=== PATIENT | male | born 1990 | race Two or more races ===

== ENCOUNTER 2018-05-19 03:21 | Emergency (ER) | payer SELFPAY ==
[2018-05-19 03:25] VITALS: BP 159/84; PULSE 91; TEMP 98.4; BMI 43.5
--- NOTE | 2018-05-19 03:37 | PDOC ---
History of Present Illness - General Chief Complaint: Chest Pain Stated Complaint: CHEST PAIN - History of Present Illness Initial Comments: 05/19/18 03:36 27 yo male with PMH asthma as a child, presents with complaint of Epigastric abdominal pain 01/01 since 1:15. He states the pain is associated with nausea and nonbloody diarrhea which he attributes to an avocado he ate earlier during the evening which tasted like it may have been bad. He endorses some chills associated. Past History - Travel Traveled outside of the country in the last 30 days: No - Past Medical History Allergies/Adverse Reactions: Allergies Allergy/AdvReac Type Severity Reaction Status Date / Time No Known Allergies Allergy Verified 05/19/18 03:24 Home Medications: Ambulatory Orders NK [No Known Home Medication] 05/19/18 Asthma: Yes COPD: No - Suicide/Smoking/Psychosocial Hx Smoking History: Never smoked Review of Systems - Review of Systems Constitutional: Yes: Chills ABD/GI: Yes: Diarrhea, Nausea, Other (Epigastric pain) *Physical Exam - Vital Signs Last Vital Signs Temp Pulse Resp BP Pulse Ox 98.4 F 91 H 18 159/84 96 05/19/18 03:22 05/19/18 03:22 05/19/18 03:22 05/19/18 03:22 05/19/18 03:22 - Physical Exam Comments: 05/19/18 03:37 GEN: A&O, mild acute distress HEENT: Dry mucus membranes, no pharyngeal erythema or exudate NECK: Supple, no lymphadenopathy HEART: RRR, no murmurs noted LUNGS: CTA b/l ABDOMEN: Soft, nondistended, epigastric tenderness to palpation EXTREMITIES: No peripheral edema or calf tenderness Moderate Sedation - Procedure Monitoring Vital Signs: Procedure Monitoring Vital Signs Temperature 98.4 F 05/19/18 03:22 Pulse Rate 91 H 05/19/18 03:22 Respiratory Rate 18 05/19/18 03:22 Blood Pressure 159/84 05/19/18 03:22 O2 Sat by Pulse Oximetry (%) 96 05/19/18 03:22 ED Treatment Course - LABORATORY CBC & Chemistry Diagram: 05/19/18 04:38 05/19/18 04:38 Medical Decision Making - Medical Decision Making 05/19/18 03:50 27 yo male with 2 hours epigastric pain, nausea, diarrhea. CBC, CMP, Influenza pending Will bolus 1L NS During lab draw, pt became diaphoretic, saturating 98% on room air but complaining of difficulty breathing EKG performed with normal sinus rhythm, no ST/Twave abnormalities, tachycardic @ 97 bpm Will add cardiac profile 05/19/18 04:41 Labs drawn, 0.22 IV in the Right hand. Labs pending. Will reassess following fluid bolus 05/19/18 05:56 CBC, CMP, lipase wnl. Likely viral gastroenteritis vs food born illness *DC/Admit/Observation/Transfer Diagnosis at time of Disposition: Gastroenteritis, Food poisoning - Discharge Dispostion Disposition: HOME Condition at time of disposition: Stable Decision to Admit order: No - Referrals - Patient Instructions Printed Discharge Instructions: Food Poisoning Additional Instructions: You were seen in the emergency department for nausea, diarrhea, and abdominal pain. All of your labs were within normal limits and your flu swab is negative. It is likely that your symptoms are related to a food that you ate. Diarrhea, nausea, and vomiting may be normal symptoms for a few days. You should drink plenty of fluids and electrolytes. If you have severe pain, bloody diarrhea or vomiting, you should be seen by your doctor or return to the emergency department. You should follow up with a primary care physician for regular health maintenance. If you do not have one, you can make an appointment at the [facility]. - Post Discharge Activity
[2018-05-19] MEDS ORDERED: SODIUM CHLORIDE 0.9% 500 ML INFUS.BAG IV ONE (03:47)
--- NOTE | 2018-05-19 04:18 | PDOC ---
Attending Attestation - Resident Resident Name: LeydiDuncan - ED Attending Attestation I have performed the following: I have examined & evaluated the patient, The case was reviewed & discussed with the resident, I agree w/resident's findings & plan - HPI HPI: 05/19/18 05:26 Pt comes with food poisoning. He ate bad avocado in a chicken salad. It tasted rotten. Pt has been vomiting. - Physicial Exam PE: 05/19/18 05:26 Agree with resident exam. Pt has gassy abd pain and no flank pain. - Medical Decision Making 05/19/18 05:27 Hydration; labs and reeval. Zofran and morphine for comfort. 05/19/18 06:26 Pt is feeling better; labs normal. Also influenza negative. He is ready for d/c home Diagnosis: food poisoning. Heart Score/ECG Review - ECG Intrepretation Rhythm: Regular Rhythm - Quinn Quinn: Normal - P and ID Prominent R with upright T in V1 (true posterior AR): No Delta Wave(s) Present: No WPW: No - QRS Poor R Wave Progression: No Q Wave Present: No - ST and T Early Repolarization: No Non Specific ST-T Wave changes: No Flattened T Waves: No Prolonged Q-T Interval: No - ECG Impressions Normal ECG: Yes Non-specific ST Elevation: No Ischemic Changes: No Torsades ra Pointes: No WPW: No Comment:: 05/19/18 05:48 Pt has a short ID interva;
[2018-05-19] MEDS ORDERED: ONDANSETRON 4 MG/2 ML VIAL IVPB ONE (04:39)
[2018-05-19] MEDS ORDERED: morphine CARPU-JECT 2 MG/1 ML DISP.SYRIN IVPUSH ONE (04:39)
[2018-05-19] MEDS ORDERED: MORPHINE SULFATE 2 MG/ML VIAL ONE (04:43)
[2018-05-19] MEDS ORDERED: ONDANSETRON 4 MG/2 ML VIAL ONE (04:43)
[2018-05-19 04:55] LABS: BASO % 0.3 % (0-2.0); HEMATOCRIT 48.5 % (35.4-49); HEMOGLOBIN 16.3 GM/dL (11.7-16.9); LYMPH % 8.3 % (8-40); MCH 28.8 pg (25.7-33.7); MCHC 33.7 g/dl (32.0-35.9); MEAN CELL VOLUME 85.5 fl (80-96); MONO % 8.1 % (3.8-10.2); NEUT % 82.3 % (42.8-82.8); PLATELET COUNT 388 K/MM3 (134-434); RBC 5.67 M/mm3 (4.00-5.60); RDW 13.4 % (11.9-15.9); WHITE BLOOD COUNT 10.3 K/mm3 (4.0-10.0)
[2018-05-19 05:36] LABS: ALBUMIN 3.9 g/dl (3.4-5.0); ALK PHOS 103 U/L (45-117); ANION GAP 6 MMOL/L (8-16); BILIRUBIN,TOTAL 1.2 mg/dL (0.2-1); BLOOD UREA NITROGEN 14 mg/dL (7-18); CALCIUM 9.1 mg/dL (8.5-10.1); CHLORIDE 105 mmol/L (98-107); CO2 26 mmol/L (21-32); CREATININE 1.1 mg/dL (0.55-1.3); GLUCOSE,RANDOM 113 mg/dL (74-106); LIPASE 122 U/L (73-393); POTASSIUM 4.4 mmol/L (3.5-5.1); SGOT/AST 31 U/L (15-37); SGPT/ALT 41 U/L (13-61); SODIUM 137 mmol/L (136-145); TOT PROT 8.2 g/dl (6.4-8.2)
--- NOTE | 2018-05-19 09:38 | EKG ---
Test Reason : Blood Pressure : / mmHG Vent. Rate : 097 BPM Atrial Rate : 097 BPM P-R Int : 104 ms QRS Dur : 080 ms QT Int : 340 ms P-R-T Axes : 030 041 029 degrees QTc Int : 431 ms SINUS RHYTHM WITH SHORT CA OTHERWISE NORMAL ECG NO PREVIOUS ECGS AVAILABLE Confirmed by BILL BAEZ MD ([id number]) on 05/19/2018 9:37:43 AM Referred By: Confirmed By:BILL BAEZ MD
== END 2018-05-19 06:26 | disposition home or self-care (01) ==
LOC: JER 03:21
PROC: 3E033NZ Introduction of Analgesics, Hypnotics, Sedatives into Peripheral Vein, Percutaneous Approach (ICD-10-PCS; principal; 2018-05-19)
PROC: 3E033GC Introduction of Other Therapeutic Substance into Peripheral Vein, Percutaneous Approach (ICD-10-PCS; 2018-05-19)
DX: K52.9 Noninfective gastroenteritis and colitis, unspecified (principal); T62.8X1A Toxic effect of other specified noxious substances eaten as food, accidental (unintentional), initial encounter; R11.0 Nausea; Y92.89 Other specified places as the place of occurrence of the external cause
CPT/HCPCS: 36415; 80053; 82550; 82553; 83690; 84484; 85025; 87804; 93005; 93010; 99283-25

== ENCOUNTER 2020-04-03 15:25 | Emergency (ER) | payer BC ==
[2020-04-03] MEDS ORDERED: SODIUM CHLORIDE IV ONE (15:38)
[2020-04-03] MEDS ORDERED: ACETAMINOPHEN 1000 MG/100 ML BAG IVPB ONE (15:39)
[2020-04-03] MEDS ORDERED: ALBUTEROL SO4 2.5/IPRATROPIUM 0.5 INH SOL 3 ML VIAL.NEB. NEB ONE ×2 (15:40)
[2020-04-03] MEDS ORDERED: methylPREDNISolone NA SUCC 125 MG/2 ML VIAL IVPB ONE (15:40)
[2020-04-03] MEDS ORDERED: MAGNESIUM SULF 50% (8.12 MEQ/2 ML-1 GM VIAL) IVPB ONE (15:40)
[2020-04-03] MEDS ORDERED: ACETAMINOPHEN INJECTION 100 ML IVPB ONE (15:40)
[2020-04-03] MEDS ORDERED: methylPREDNISolone NA SUCC 125 MG/2 ML VIAL ONE (15:40)
[2020-04-03 16:00] VITALS: BMI 48.1
[2020-04-03 16:17] LABS: BASO % 0.9 % (0-2.0); EOS % 0.4 % (0-4.5); HEMOGLOBIN 13.9 GM/dl (11.7-16.9); LYMPH % 7.7 % (8-40); MCH 27.9 pg (25.7-33.7); MCHC 33.1 g/dl (32.0-35.9); MEAN CELL VOLUME 84.3 fl (80-96); MEAN PLT VOLUME 9.5 fl (7.5-11.1); MONO % 6.5 % (3.8-10.2); NEUT % 84.5 % (42.8-82.8); PLATELET COUNT 355 K/MM3 (134-434); RBC 4.98 M/mm3 (4.00-5.60); RDW 12.7 % (11.9-15.9); WHITE BLOOD COUNT 12.9 K/mm3 (4.0-10.8)
[2020-04-03 16:31] LABS: ACTIVATED PTT 26.4 SECONDS (25.2-36.5)
[2020-04-03 16:33] LABS: ALBUMIN 3.6 g/dl (3.4-5.0); CALCIUM 8.7 mg/dl (8.5-10); TOT PROT 7.2 g/dl (6.4-8.2)
[2020-04-03 16:35] LABS: INR 1.53 (0.82-1.09); PROTHROMBIN TIME (PATIENT) 16.7 SEC (10.2-13.0)
[2020-04-03] MEDS ORDERED: BAMLANIVIMAB 700 MG in SODIUM CHLORIDE 180 ML IVPB ONE (18:22)
[2020-04-03 19:37] VITALS: TEMP 100.7
[2020-04-03 21:18] VITALS: BP 121/80; PULSE 88
== END 2020-04-03 21:38 | disposition home or self-care (01) ==
LOC: FER 15:25
PROC: 3E0F7GC Introduction of Other Therapeutic Substance into Respiratory Tract, Via Natural or Artificial Opening (ICD-10-PCS; principal; 2020-04-03)
PROC: 3E033NZ Introduction of Analgesics, Hypnotics, Sedatives into Peripheral Vein, Percutaneous Approach (ICD-10-PCS; 2020-04-03)
PROC: 3E033GC Introduction of Other Therapeutic Substance into Peripheral Vein, Percutaneous Approach (ICD-10-PCS; 2020-04-03)
DX: U07.1 COVID-19 (principal)
CPT/HCPCS: 36415; 71045-TC-FY; 74177-TC; 80053; 82728; 83605; 83615; 84484; 85025; 85379; 85610; 85730; 86140; 87040; 87804; 93005; 99285-25; C9803; J0131; M0239; Q0239; Q9967; U0003

== ENCOUNTER 2022-11-08 08:48 | Emergency (ER) | payer BC ==
[2022-11-08 09:23] VITALS: PULSE 80; BMI 50.2
[2022-11-08 10:35] LABS: BASO % 0.7 % (0-2.0); HEMATOCRIT 46.1 % (35.4-49); HEMOGLOBIN 14.6 GM/dL (11.7-16.9); LYMPH % 20.9 % (8-40); MCH 26.8 pg (25.7-33.7); MCHC 31.6 g/dl (32.0-35.9); MEAN CELL VOLUME 84.6 fl (80-96); MEAN PLT VOLUME 9.3 fl (7.5-11.1); MONO % 7.9 % (3.8-10.2); NEUT % 67.5 % (42.8-82.8); PLATELET COUNT 420 10^3/uL (134-434); RBC 5.45 M/mm3 (4.00-5.60); RDW 13.9 % (11.9-15.9)
[2022-11-08 11:00] LABS: POTASSIUM 4.9 mmol/L (3.5-5.1)
[2022-11-08 11:02] LABS: CALCIUM 8.8 mg/dL (8.5-10.1)
[2022-11-08 11:03] LABS: ALBUMIN 3.7 g/dl (3.4-5.0); MAGNESIUM 2.3 mg/dL (1.8-2.4)
[2022-11-08 11:06] LABS: CREATININE 0.9 mg/dL (0.55-1.3); PHOSPHOROUS 2.9 mg/dL (2.5-4.9)
[2022-11-08 11:08] LABS: BILIRUBIN,TOTAL 1.2 mg/dL (0.2-1); TOT PROT 7.5 g/dl (6.4-8.2)
[2022-11-08 12:59] VITALS: BP 150/90; RESP 13; TEMP 98.3
== END 2022-11-08 12:59 | disposition home or self-care (01) ==
LOC: JER 08:48
DX: R06.02 Shortness of breath (principal); R20.2 Paresthesia of skin
CPT/HCPCS: 36415; 71045-TC-FY; 80053; 83735; 84100; 84484; 85025; 93005; 93010; 99285-25

== ENCOUNTER 2023-06-25 23:52 | Emergency (ER) | payer OTHER, BC ==
[2023-06-25 23:58] VITALS: BP 177/105; PULSE 71; RESP 18; TEMP 98.9; BMI 48.7
[2023-06-26] MEDS ORDERED: ACETAMINOPHEN 325 MG TABLET (FP) ONE (00:37)
[2023-06-26] MEDS: ACETAMINOPHEN 325 MG TABLET (FP) PO ONE (00:44)
[2023-06-26] MEDS ORDERED: IBUPROFEN 600 MG TABLET (FP) PO ONE (01:42)
[2023-06-26] MEDS: IBUPROFEN 600 MG TABLET (FP) PO ONE (01:46)
== END 2023-06-26 02:10 | disposition home or self-care (01) ==
LOC: JER 23:52
DX: S63.641A Sprain of metacarpophalangeal joint of right thumb, initial encounter (principal); X50.1XXA Overexertion from prolonged static or awkward postures, initial encounter
CPT/HCPCS: 73130-TC-RT-FY; 99283-25